=== PATIENT | male | born 1940 | race Caucasian/White ===

== ENCOUNTER 2017-07-04 06:16 | Inpatient (IN) | payer OTHER, MEDICARE ==
[2017-06-20 09:04] VITALS: BMI 29.0
--- NOTE | 2017-06-20 09:33 | PAT Medication Instructions ---
Service Date Jun 20, 2017. Current Home Medication List Allopurinol (Zyloprim), 100 MG PO QPM Olmesartan/Hctz (Benicar Hct 40/12.5), 1 TAB PO QAM Simvastatin (Zocor), 40 MG PO QPM Medication Instructions For Your Scheduled Surgery - Hold the following medications the morning of surgery: Olmesartan/Hctz (Benicar Hct 40/12.5), 1 TAB PO QAM - Take the following medications as scheduled the night before surgery: Allopurinol (Zyloprim), 100 MG PO QPM Simvastatin (Zocor), 40 MG PO QPM If you have any questions please call us at [phone] or [phone] or [phone]
--- NOTE | 2017-06-20 10:07 | DIAGNOSTIC IMAGING REPORT ---
CHEST 2 VIEWS ROUTINE HISTORY: 76 years-old Male PAT preoperative exam. No acute chest complaints. COMPARISON: None available TECHNIQUE: PA and lateral views of the chest FINDINGS: Cardiomediastinal and hilar silhouettes are within normal limits. Atherosclerosis of the aorta. No pneumothorax, pleural effusion, focal airspace consolidation or overt pulmonary edema. Bones of the chest appear grossly intact. IMPRESSION: No acute process. The above report was generated using voice recognition software. It may contain grammatical, syntax or spelling errors. Electronically signed by: Emil Cosby M.D. 06/20/2017 10:06 AM Dictated Date/Time: 06/20/2017 10:05 AM
[2017-06-20 10:34] LABS: BASO % 0.6 %; BASO ABS # 0.03 K/uL (0-0.2); EOS % 1.7 %; EOS ABS # 0.09 K/uL (0-0.5); HEMATOCRIT 41.7 % (42-52); HEMOGLOBIN 15.1 g/dL (14.0-18.0); IG# 0.01 K/uL (0.00-0.02); LYMPH % 23.7 %; LYMPH ABS # 1.22 K/uL (1.2-3.4); MEAN CORPUSCULAR HGB CONC 36.2 g/dl (32-36); MEAN PLATELET VOLUME 10.6 fL (7.4-10.4); MONO % 10.7 %; MONO ABS # 0.55 K/uL (0.11-0.59); NEUT % 63.1 %; NEUT ABS # 3.25 K/uL (1.4-6.5); PLATELET COUNT 119 K/uL (130-400); RED CELL DISTRIBUTION WIDTH CV 13.4 % (11.5-14.5); WHITE BLOOD COUNT 5.15 K/uL (4.8-10.8)
[2017-06-20 11:24] LABS: CALCIUM 9.6 mg/dl (8.5-10.1); CREATININE 1.14 mg/dl (0.60-1.40); POTASSIUM 4.1 mmol/L (3.5-5.1)
[2017-07-04] VITALS (18 sets, daily range): BP systolic 82–187; BP diastolic 51–93; PULSE 59–90; TEMP 36.3–37; O2SAT 95–97; Ht 175.3 cm; Wt 91.1 kg
[~2017-07-04] VITALS: Ht 175.3 cm; Wt 91.1 kg
[~2017-07-04 06:16] MED LIST: ACETAMINOPHEN 500 MG TAB PO SCH; ALLO100T PO; CEFAZOLIN 2000MG IV PUSH 15 ML IV SCH; CLINDAMYCIN 600 MG/54 ML D5W 54 ML IV SCH; CeleBREX 200 MG CAP PO SCH; GABAPENTIN 900 MG PO SCH; LACTATED RINGER'S 1000ML 1,000 ML IV SCH; NSS 1000ML IV SCH; OLME40TA30 PO; SIMV40TA2 PO
[2017-07-04] MEDS ORDERED: MIDAZOLAM HCL 1 MG/ML 2ML VIAL ONE (06:45)
[2017-07-04] MEDS ORDERED: FENTANYL CITRATE INJ 50 MCG/1 ML 2 ML VIAL ONE ×2 (06:45→08:02)
[2017-07-04] MEDS ORDERED: SODIUM CHLORIDE 0.9% PF 50 ML VIAL ONE (07:17)
[2017-07-04] MEDS ORDERED: BACITRACIN 50000 UNIT VIAL ONE (07:17)
--- NOTE | 2017-07-04 07:28 | History & Physical Bridge Note ---
H&P Re-Evaluation Bridge Note: I have examined the patient, reviewed the History & Physical and in the interval since the performance of the History & Physical I have noted the following changes of clinical significance: No changes noted
--- NOTE | 2017-07-04 07:29 | History and Physical ---
History & Physical Date Jul 04, 2017. Chief Complaint Neck and arm pain History of Present Illness The patient is a 76 year old male with complaints of neck and arm pain Additional History Hepatic Disease: No Endocrine Disorder: No Kidney Disease: No Hypertension: Yes Heart Disease: No Bleeding Tendencies: No Infectious Diseases: No Allergies Coded Allergies: No Known Allergies (Unverified , 07/04/17) Home Medications Scheduled Allopurinol (Zyloprim), 100 MG PO QPM Olmesartan/Hctz (Benicar Hct 40/12.5), 1 TAB PO QAM Simvastatin (Zocor), 40 MG PO QPM Physical Examination Skin: warm/dry, no rash Eyes: normal inspection, EOMI, sclerae normal ENT: normal ENT inspection, pharynx normal Head: normocephalic, atraumatic Neck: supple, no adenopathy, trachea midline Respiratory/Chest: lungs clear, normal breath sounds, no respiratory distress Cardiovascular: regular rate, rhythm, no edema, no murmur Abdomen / GI: normal bowel sounds, non tender Back: normal inspection Extremities: normal inspection, normal range of motion Neurologic/Psych: no motor/sensory deficits, alert, normal reflexes, oriented x 3 Diagnosis Cervical spinal stenosis Plan of Treatment ACDF C4-5 C6 corpectomy
[2017-07-04] MEDS ORDERED: EpHEDrine SULFATE INJ 50 MG/ML AMP IV PRN (07:30)
[2017-07-04] MEDS ORDERED: HYDROmorphone INJ 2 MG/ML SYR/VIAL IV PRN (07:30)
[2017-07-04] MEDS ORDERED: PHENYLEPHRINE 100MCG/ML 5ML SYR IV PRN (07:30)
[2017-07-04] MEDS ORDERED: FLUMAZENIL 0.1 MG/1 ML 10 ML VIAL IV PRN (07:30)
[2017-07-04] MEDS ORDERED: LABETALOL HCL IV 5 MG/ML 20ML IV PRN (07:30)
[2017-07-04] MEDS ORDERED: NALOXONE HCL 0.4 MG/1 ML VIAL/CARP IV PRN ×2 (07:30→09:45)
[2017-07-04] MEDS ORDERED: ATROPINE SULFATE 0.1 MG/ML 5ML SYR IV PRN (07:30)
[2017-07-04] MEDS ORDERED: MEPERIDINE HCL 25 MG/ML CARP IV PRN (07:30)
[2017-07-04] MEDS ORDERED: ONDANSETRON INJ 2 MG/ML 2 ML VIAL IV PRN ×2 (07:30→09:45)
[2017-07-04] MEDS ORDERED: HYDROmorphone INJ 2 MG/ML SYR/VIAL ONE ×2 (08:02→09:33)
[2017-07-04] MEDS ORDERED: DEXAMETHASONE SOD INJ 4 MG/ML VIAL ONE (08:16)
[2017-07-04] MEDS ORDERED: ONDANSETRON INJ 2 MG/ML 2 ML VIAL ONE ×2 (08:16→09:38)
[2017-07-04] MEDS ORDERED: ROCURONIUM BROMIDE 10 MG/ML 5 ML VIAL IV ONE (09:26)
[2017-07-04] MEDS ORDERED: PROPOFOL IV EMULSION 10 MG/ML 20 ML VIAL IV ONE (09:26)
[2017-07-04] MEDS ORDERED: LIDOCAINE HCL 2% 2 ML VIAL (20MG/ML) ONE (09:26)
[2017-07-04] MEDS ORDERED: FLOSEAL HEMOSTATIC MATRIX 5ML TOP ONE (09:38)
[2017-07-04] MEDS ORDERED: PHENYLEPHRINE 100MCG/ML 5ML SYR ONE (09:38)
[2017-07-04] MEDS ORDERED: NEOSTIGMINE METHYLSULFATE 1 MG/ML 10ML VIAL ONE (09:38)
[2017-07-04] MEDS ORDERED: GLYCOPYRROLATE INJ 0.2 MG/ML VIAL ONE (09:38)
[2017-07-04] MEDS ORDERED: METOPROLOL TARTRATE 1 MG/ML VIAL ONE (09:38)
[2017-07-04] MEDS ORDERED: EpHEDrine SULFATE 50MG/5ML SYR ONE (09:38)
--- NOTE | 2017-07-04 09:41 | [facility] Operative Report ---
Operative Report Operative Date Jul 04, 2017. Pre-Operative Diagnosis Cervical Spinal Stenosis Post-Operative Diagnosis Same Procedure(s) Performed 1. Anterior cervical corpectomy C6. #2 anterior cervical discectomy C4-5. #3 anterior cervical arthrodesis C4-C5 C5-C7. #4 placed a peek cage 8 mm at C4-5 and 25 mm at C5 C7. #5 application of locking plate and screws from C4-C7. #6 placement with locally harvested morselized allograft combined with DBM and interbody cages. Surgeon Dr. Jamarcus Kemp Marine Operations Coordinator Surgeon(s) Lindy Meadows PA-C Estimated Blood Loss 150mL Findings Severe spinal stenosis Specimens None, Per Surgeon Anesthesia Type General Description of Procedure Patient was met with preoperatively case discussed all questions addressed. After informed consent obtained patient was taken to the operative suite underwent intubation and placed in a supine position on the Qasim table that [place] hogshead mat assembler. All bony prominences were well-padded eyes inspected to ensure no external pressure placed upon them. This point the anterior cervical spine was prepped and draped in the normal sterile fashion. With the assistance of fluoroscopy identified the C5-6 disc space. A transverse incision was placed along the right anterior aspect of the cervical spine. Sharp dissection with the assistance of bipolar electrocautery was performed on September exposing the anterior cervical spine from C4-C7. Self-retaining retractors placed. Then performed a complete discectomy at C5-6 up to the uncovertebral joints bilaterally followed by C6-7. [place] distracting pins were then placed in C5 and C7 to distract across the C6 vertebral body complete corpectomy was then performed including removal of all posterior annular fibers and longitudinal ligament. Endplates were then burred to subcortical bleeding bone and 25 mm peek cage filled with locally harvested morselized autograft and DBM was tamped in position. Then proceeded at C4-5. Again complete discectomy performed up to the uncovertebral S bilaterally. [place] distractor pendulous to assist us in her visualization. I removed all posterior annular fibers longitudinal and to perform bilateral foraminotomies. The endplates were then burred to subcortical bleeding bone and an 8 mm peek cage filled with locally harvested morselized autograft and DBM tapped in position. All distracting apparatus was removed on anterior aspect burred to a smooth cortical surface and I felt complete and screws applied with the assistance of fluoroscopy. Incision was then copiously irrigated explored to ensure there is no damage to surrounding structures or remaining bleeding. 10 round ROSE drain inserted. Incision was then closed with 2 Vicryl to fascia 4-0 Monocryl for fashion closure Steri-Strips sterile dressings placed. Patient weakened taken to PACU in stable condition. Please note Lindy Jc was present throughout the entire procedure involved in patient positioning complex portions of the surgery and final skin closure. I attest to the content of the Intraoperative Record and any orders documented therein. Any exceptions are noted below.
[2017-07-04] MEDS ORDERED: HYDROmorphone INJ 0.5 MG/0.5 ML SYR IV PRN (09:45)
[2017-07-04] MEDS ORDERED: LORAZEPAM 0.5 MG TAB PO PRN (09:45)
[2017-07-04] MEDS ORDERED: DO NOT ADMINISTER FLU VACCINE PRN (09:45)
[2017-07-04] MEDS ORDERED: OXYCODONE HCL IR 5 MG TAB (IMMEDIATE RELEASE) PO PRN (09:45)
[2017-07-04] MEDS ORDERED: RACEPINEPHRINE 2.25% NEBU SOLN 0.5 ML VIAL INH PRN (09:45)
[2017-07-04] MEDS ORDERED: LORAZEPAM INJ 0.5 MG in SYRINGE 0.75 ML IV PRN (09:45)
[2017-07-04] MEDS ORDERED: DEXAMETHASONE INJ 8 MG in SYRINGE 0 ML IV PRN (09:45)
[2017-07-04] MEDS ORDERED: DiphenhydrAMINE HCL 50 MG/ML VIAL IV PRN (09:45)
[2017-07-04] MEDS ORDERED: MAGNESIUM HYDROXIDE SUSP 30 ML UDC PO PRN (09:45)
[2017-07-04] MEDS ORDERED: DO NOT ADMINISTER PNEUMOCOCCAL VACCINE PRN (09:45)
[2017-07-04] MEDS ORDERED: ACETAMINOPHEN IV 100 ML IV PRN (09:45)
--- NOTE | 2017-07-04 10:33 | DIAGNOSTIC IMAGING REPORT ---
CERVICAL 2 OR 3 VIEWS CLINICAL HISTORY: C4-C5 ACDF, C6 CORPECTOMY TECHNIQUE: Image intensifier COMPARISON STUDY: None FINDINGS: Findings consistent with anterior cervical fusion and corpectomy. IMPRESSION: Anterior fusion and corpectomy The above report was generated using voice recognition software. It may contain grammatical, syntax or spelling errors. Electronically signed by: Khalif Jacobo M.D. 07/04/2017 10:32 AM Dictated Date/Time: 07/04/2017 10:04 AM
[2017-07-04] MEDS: FENTANYL CITRATE INJ 50 MCG/1 ML 2 ML VIAL IV PRN ×2 (10:35→10:40)
--- NOTE | 2017-07-04 10:47 | Anesthesiology Progress Note ---
Anesthesia Post Op Note Date & Time Jul 04, 2017 at 10:46 Vital Signs Pain Intensity: 2 Vital Signs Past 12 Hours Date Time Temp Pulse Resp B/P (MAP) Pulse Ox O2 Delivery O2 Flow Rate FiO2 07/04/17 10:35 59 16 144/74 97 Nasal Cannula 4 07/04/17 10:25 60 16 138/84 97 Nasal Cannula 4 07/04/17 10:15 64 16 162/80 98 Nasal Cannula 4 07/04/17 10:05 63 16 156/75 99 Oxymask 5 07/04/17 09:55 66 16 158/80 98 Oxymask 10 07/04/17 09:48 36.2 69 16 168/74 98 Oxymask 10 07/04/17 06:35 36.4 82 24 187/93 97 Room Air Notes Mental Status: alert / awake / arousable, participated in evaluation Pt Amnestic to Procedure: Yes Nausea / Vomiting: adequately controlled Pain: adequately controlled Airway Patency, RR, SpO2: stable & adequate BP & HR: stable & adequate Hydration State: stable & adequate Anesthetic Complications: no major complications apparent The patient is doing well with no neck swelling. I discussed with the patient to let the nurse on the floor know if he has any trouble breathing or has any swelling of his neck.
[2017-07-04] MEDS ORDERED: HYDROmorphone INJ 1 MG/ML SYR IV PRN (11:45)
[2017-07-04] MEDS ORDERED: SCOPOLAMINE 1.5 MG TDSY TD SCH (12:00)
[2017-07-04] MEDS ORDERED: NURSING VERBAL MED ORDER ONE (13:00)
[2017-07-04] MEDS: SODIUM CHLORIDE 0.9% 1000ML 1,000 ML IV SCH ×2 (13:07→22:16)
[2017-07-04] MEDS ORDERED: RXC5 PO (14:54)
--- NOTE | 2017-07-04 14:56 | Discharge Instructions ---
Discharge Instructions Date of Service Jul 04, 2017. Admission Reason for Admission: Spinal Stenosis Discharge Discharge Diagnosis / Problem: cervical stenosis Discharge Goals Goal(s): Improve function Activity Recommendations Activity Limitations: per Instructions/Follow-up section . Instructions / Follow-Up Instructions / Follow-Up ACTIVITY RECOMMENDATIONS: SELF CARE INSTRUCTIONS AFTER CERVICAL FUSIONS 1. No smoking. Smoking drastically decreases the chance of a solid fusion. 2. No bending, lifting more than 5 pounds, or twisting (roll like a log when turning in bed). 3. You may shower 3 days after surgery. Thoroughly dry wound. Do not soak in the tub. 4. Cervical collar: Must be worn at all times including sleeping. You may remove the brace only to bath, eat and if you are sitting in a recliner. 5. Please walk as much as you can for exercise. Gradually increase the distance that you walk as your endurance increases. SPECIAL CARE INSTRUCTIONS: VERY IMPORTANT TO READ AND REVIEW A. Do not take any anti-inflammatory medications (i.e. Indocin, Advil, Aspirin, Naprosyn, Aleve, Motrin, etc.) as these may inhibit the chance of a solid fusion. Tylenol is okay to take. B. Your surgical incision has been closed with a cosmetic suture under the skin that will dissolve in about 6 weeks. In 14 days, you can use a pair of clean scissors and cut the suture that is left outside of the skin at the ends of your incision. C. Complications are uncommon, but please contact us if you have any signs or symptoms of: 1. wound infection (fever higher than 102.5 degrees F, redness, separation of wound, drainage, or increasing pain from the incision) 2. blood clots in legs (pain, swelling, redness and warmth in legs) 3. urinary tract infection (fever higher than 102.5 degrees, burning upon urination or increased frequency of urination) 4. nerve problems (inability to walk on your toes or heels, numbness, loss of bowel or bladder control) 5. any other symptoms that concern you. D. Please call the office at if you have any concerns or questions about your operation or recovery. MANAGING PAIN AFTER SPINAL SURGERY 1. Narcotic medication is intended for short-term use and will be provided for surgical pain. Surgical pain usually lasts for a period of 4-6 weeks. Narcotic medication includes Percocet, Vicodin, Darvocet, Tylenol #3 or Lortab. 2. Longer-term pain is more appropriately treated with non-narcotic medication such as Tylenol ES. 3. Muscle spasm is not appropriately treated with narcotics. Muscle relaxers such as Soma, Flexeril or Skelaxin can be used along with Tylenol ES. 4. Remember that we all live with some "aches and pains". This is not unusual or uncommon after an injury or as we get older. 5. We will provide appropriate medication within the normal guidelines of their prescribed use. We will also be very cautious and aware of potential abuse and extended duration of patients' medication needs. 6. Please allow 2-3 days to process refills. Prescriptions will not be mailed but must be picked up at the office. FOLLOW UP VISIT: Keep your scheduled follow-up appointment. Any questions, please call the office at . Current Hospital Diet Patient's current hospital diet: Clear Liquid Diet Discharge Diet Recommended Diet: Regular Diet Procedures Procedures Performed: C4-C5 Anterior Cervical Discectomy and Fusion; C6 Corpectomy, use of Demineralized Bone Matrix, C4-C7 Fusion. Pending Studies Studies pending at discharge: no Medical Emergencies . Who to Call and When: Medical Emergencies: If at any time you feel your situation is an emergency, please call 911 immediately. . Non-Emergent Contact Non-Emergency issues call your: Primary Care Provider . "Provider Documentation" section prepared by Jamarcus Kemp. .
[2017-07-04] MEDS: CHECK SCOPOLAMINE PATCH PLACEMENT SCH (16:00)
[2017-07-04] MEDS: CEFAZOLIN IV 2,000 MG in SYRINGE 0 ML IV SCH (16:57)
[2017-07-04] MEDS ORDERED: ALLOPURINOL 100 MG TAB PO SCH (21:00)
[2017-07-04] MEDS ORDERED: SIMVASTATIN 40 MG TAB PO SCH (21:00)
[2017-07-04] MEDS: DOCUSATE SODIUM 100 MG CAP PO SCH (21:23)
[2017-07-05] VITALS (20 sets, daily range): BP systolic 113–142; BP diastolic 62–71; PULSE 66–85; TEMP 36.5–37.1; O2SAT 94–98
[2017-07-05] MEDS: CHECK SCOPOLAMINE PATCH PLACEMENT SCH ×3 (00:04→15:48)
[2017-07-05] MEDS: CEFAZOLIN IV 2,000 MG in SYRINGE 0 ML IV SCH ×2 (00:05→07:58)
--- NOTE | 2017-07-05 07:56 | Anesthesiology Progress Note ---
Anesthesia Post Op Note Date & Time Jul 05, 2017 at 07:55 Vital Signs Pain Intensity: 0.0 Vital Signs Past 12 Hours Date Time Temp Pulse Resp B/P (MAP) Pulse Ox O2 Delivery O2 Flow Rate FiO2 07/05/17 07:52 Room Air 07/05/17 07:33 72 16 94 Room Air 07/05/17 06:11 36.5 67 16 129/69 97 Nasal Cannula 2.0 07/05/17 06:09 36.5 67 16 129/69 (89) 97 Nasal Cannula 2.0 07/05/17 06:08 36.5 67 16 129/69 (89) 97 Nasal Cannula 2.0 07/05/17 04:02 36.8 69 16 113/63 (80) 97 Nasal Cannula 2.0 69 07/05/17 04:01 36.8 69 16 113/63 (80) 97 Nasal Cannula 2.0 69 07/05/17 04:00 82 16 96 Nasal Cannula 2.0 07/05/17 03:59 36.8 69 16 113/63 97 Nasal Cannula 2.0 07/05/17 02:06 37.1 85 16 125/64 (84) 96 Nasal Cannula 2.0 07/05/17 02:03 36.8 66 14 138/65 96 Nasal Cannula 2.0 07/05/17 01:04 96 Nasal Cannula 2.0 07/05/17 00:03 85 16 96 Nasal Cannula 2.0 07/05/17 00:00 37.1 78 17 125/64 (84) 95 Room Air 2.0 Humidified Oxygen 07/04/17 23:21 36.8 86 18 153/80 95 Nasal Cannula 2.0 Humidified Oxygen 07/04/17 22:05 36.8 86 18 153/80 95 Nasal Cannula 2.0 Humidified Oxygen 07/04/17 20:47 36.8 79 18 82/51 (61) 97 Room Air 07/04/17 20:40 84 16 96 Nasal Cannula 3.0 07/04/17 19:57 37.0 87 18 131/66 95 Nasal Cannula 2.5 Humidified Oxygen Notes Mental Status: alert / awake / arousable, participated in evaluation Pt Amnestic to Procedure: Yes Nausea / Vomiting: adequately controlled Pain: adequately controlled Airway Patency, RR, SpO2: stable & adequate BP & HR: stable & adequate Hydration State: stable & adequate Anesthetic Complications: no major complications apparent
[2017-07-05] MEDS: SODIUM CHLORIDE 0.9% 1000ML 1,000 ML IV SCH (07:57)
[2017-07-05] MEDS: DOCUSATE SODIUM 100 MG CAP PO SCH (08:45)
[2017-07-05] MEDS ORDERED: OLMESARTAN MEDOXOMIL 40 MG TAB PO SCH (09:00)
[2017-07-05] MEDS ORDERED: HYDROCHLOROTHIAZIDE 25 MG TAB PO SCH (09:00)
--- NOTE | 2017-07-05 13:33 | Discharge Summary ---
Orthopedic Discharge Summary Admission Date/Reason Jul 04, 2017 at 07:30 Spinal Stenosis. Discharge Date/Disposition Jul 05, 2017 Home Diagnosis Principal Diagnosis: Cervical spinal stenosis Admission Physical Exam As per Admitting History & Physical. Hospital Course Patient underwent anterior cervical decompression and fusion tolerated this well was taken to the orthopedic floor postoperatively. Postop day #1 his arm symptoms are markedly improved. He was swallowing without difficulty. He had no hoarseness. ROSE drain decreased appropriately. Subsequently he was discharged home. Discharge orders and instructions found in the chart for further review. Discharge Instructions Please refer to the electronic Patient Visit Report (Discharge Instructions) for additional information.
[2017-07-06] MEDS ORDERED: BISACODYL 10 MG SUPP PR PRN (06:00)
[2017-07-06] MEDS ORDERED: BISACODYL 5 MG TABEC PO PRN (06:00)
[2017-07-07] MEDS ORDERED: POLYETHYLENE (MIRALAX) 17 GM PACK PO SCH (09:00)
== END 2017-07-05 16:26 | disposition home or self-care (01) | DRG 473 ==
LOC: C.ACU 06:16 → C.3E 07:30 → ENRESERV 10:42
PROVIDERS: ADMIT Orthopaedic Surgery Orthopaedic Surgery of the Spine; ATTEND Orthopaedic Surgery Orthopaedic Surgery of the Spine
PROC: 0RT30ZZ Resection of Cervical Vertebral Disc, Open Approach (ICD-10-PCS; principal; 2017-07-04 07:45)
PROC: 0RG20A0 Fusion of 2 or more Cervical Vertebral Joints with Interbody Fusion Device, Anterior Approach, Anterior Column, Open Approach (ICD-10-PCS; principal; 2017-07-04 07:45)
PROC: 0RB10ZZ Excision of Cervical Vertebral Joint, Open Approach (ICD-10-PCS; principal; 2017-07-04 07:45)
DX: M48.02 Spinal stenosis, cervical region (principal); M54.12 Radiculopathy, cervical region; I10 Essential (primary) hypertension; E78.5 Hyperlipidemia, unspecified; Z87.442 Personal history of urinary calculi; Z79.899 Other long term (current) drug therapy; Z98.890 Other specified postprocedural states

== ENCOUNTER 2021-08-19 09:07 | Observation (INO) ==
--- NOTE | 2021-07-29 13:45 | History & Physical Report ---
Date of Service July 29, 2021 date of surgery: 08/19/21 Procedure: Right Total Knee Arthroplasty Surgeon: Pablo Weaver Assessment & Plan (1) Arthritis of right knee: Plan: presents with increased pain in his right knee, has had prior cortisone injections, visco as well as fluid flow without relief. we discussed options, he would like to proceed with felicia block Right TKA at [facility] as part of OPJ program. patient will undergo Iovera treatment prior to his TKA The risks and benefits have been discussed including, but not limited to, risk of infection, nerve injury, stiffness, loss of motion, failure to improve, etc. Reasonable outcomes and options of treatment were discussed. An explanation of appropriate alternatives to the procedure that may be advantageous were discussed and their risks and benefits, as well as the risks and benefits of not proceeding with treatment. I offered to answer any additional inquiries concerning the treatment involved. All the patient's questions were answered. The patient is agreeable, understanding of the treatment plan and alternatives, and wishes to proceed with the treatment plan. History of Present Illness Chief Complaint: right knee pain Primary Care Provider: Bravo Malone DO Sam is a 81 year old male who complains of right knee pain, presents for pre-op evaluation prior to a right total knee replacement by Dr Weaver at [facility]. he complains of pain, decreased range of motion, instability and stiffness in his right knee. Currently the patient states that the symptoms are moderate- severe and is described as aching, sharp and throbbing. His symptoms are aggravated by ascending stairs, daily activities, first steps while awake walking. Prior NSAIDs include IBU and Aleve. He has been treated with previous cortisone, viscosupplementation and fluid flow injections in the past without much relief. in Nov 2018 he underwent Right knee arthroscopy with partial medial meniscectomy, Partial lateral meniscectomy, Chondroplasty patellofemoral joint Chondroplasty medial femoral condyle. Allergies Allergy/AdvReac Type Severity Reaction Status Date / Time No Known Allergies Allergy Verified 03/23/21 09:02 Home Medications Medication Instructions Recorded Confirmed Type allopurinol 100 mg tablet 200 mg PO QPM 03/23/21 03/23/21 History olmesartan 40 1 tab PO QAM 03/23/21 03/23/21 History mg-hydrochlorothiazide 12.5 mg tablet simvastatin 40 mg tablet 40 mg PO PM 03/23/21 03/23/21 History Past Med/Surg History Medical History Hearing deficit Hyperlipidemia Hypertension controlled, stable per pt Surgical History History of arthroscopy of right knee History of carpal tunnel surgery of left wrist History of colonoscopy History of fusion of cervical spine ACDF C4-C5, C4-C7 fusion 07/04/2017: Grade 1 view, Glidescope #4, ETT#8.0. No issues per anesthesia progress note. History of lithotripsy multiple, last 5 yrs ago, h/o renal stones, on allopurinol History of tooth extraction all teeth removed Family History Other No family history of adverse response to anesthesia Social History Smoking Status: Never smoker Second Hand Exposure: No; Hx Alcohol Use: No Hx Substance Use: No Preferred Language: Sinhala Communication Ability: Effective Water Ski Assembler Required: No Beliefs That Will Affect Care: None Current Living Situation: Spouse Feels Safe at Home: Yes Assistive Devices: Denture - Upper, Denture - Lower and Glasses Review of Systems Review of Systems: All systems reviewed & are unremarkable except as noted in HPI & below Constitutional: no fever, no chills and no sweats Respiratory: no cough and no dyspnea Cardiovascular: no chest pain, no dyspnea and no orthopnea Gastrointestinal: no abdominal pain, no nausea and no vomiting Musculoskeletal: as per Subjective / HPI Physical Exam Physical Exam: HT: 5ft 9in WT: 8.9kg Constitutional: WD/WN, vitals as above no acute distress Respiratory: normal respiratory effort, lungs clear to auscultation no respiratory distress, no labored breathing and does not use accessory muscles Cardiovascular: RRR, no murmur, no edema Gastrointestinal (Abdomen): normal bowel sounds, soft, nontender, no hepatosplenomegaly Musculoskeletal: Knee: + knee abnormal to inspection (RIGHT KNEE), + effusion (+1 effusion), + surgical incision (well healed portals), + limited ROM of knee (ROM 0/3/110), + knee ROM with crepitation, + joint line tenderness (medial joint line) and + Heena's sign positive; no deformity, no skin erythema, no ecchymosis, no valgus laxity, no varus laxity, anterior drawer test negative, Marlene's sign negative and pivot shift test negative Results & Data Results & Data ([facility]) Diagnostic Findings Right Knee X-ray: Right knee series showing advanced degenerative changes to the right knee, narrowing of the medial compartment and patello-femoral joint with patellar spurring noted, findings showing joint space narrowing of the medial compartment and patello-femoral joint, osteophyte formation and subchondral sclerosis noted. overall varus alignment. no acute bony pathology noted.
--- NOTE | 2021-08-07 10:59 | Anesthesiology Consultation ---
Date of Service August 07, 2021 Assessment & Plan (1) Encounter for pre-operative examination: - COVID screening: Per assessment on 08/07: No known COVID-19 positive contacts or current COVID-19 related symptoms. Travel screen negative. Patient vaccinate d. Surgeon arranging preop COVID testing. Awaiting results. - Hx glidescope intubation: ACDF C4-C5, C4-C7 fusion 07/04/2017 [facility]: Grade 1 view,Glidescope #4, ETT#8.0. No issues per anesthesia progress note. Chart Review Chart Review: Acceptable Risk for Surgery and Patient NOT seen in Pre Admission Testing History Surgery Operation Date: 08/19/21 11:20 Proposed Procedures p Right Total Knee Arthroplasty - Pablo Wevaer DO Height/Weight Height: 5 ft 9 in Weight: 83.461 kg Allergies Allergy/AdvReac Type Severity Reaction Status Date / Time No Known Allergies Allergy Verified 08/07/21 10:13 Medications Home Medications Medication Instructions Recorded Confirmed Last Taken allopurinol 100 mg tablet 200 mg PO QPM 03/23/21 08/07/21 Unknown olmesartan 40 1 tab PO QAM 03/23/21 08/07/21 Unknown mg-hydrochlorothiazide 12.5 mg tablet simvastatin 40 mg tablet 40 mg PO PM 03/23/21 08/07/21 Unknown multivitamin 1 tab PO QAM 08/07/21 08/07/21 Unknown Past Medical History Medical History (Updated 08/07/21 @ 10:29 by Kirstin Hinds RN) Arthritis Hearing deficit Hyperlipidemia Hypertension controlled, stable per pt Past Family History Family History Other No family history of adverse response to anesthesia Past Surgical History Surgical History History of arthroscopy of right knee History of carpal tunnel surgery of left wrist History of colonoscopy History of fusion of cervical spine ACDF C4-C5, C4-C7 fusion 07/04/2017: Grade 1 view, Glidescope #4, ETT#8.0. No issues per anesthesia progress note. History of lithotripsy multiple, last 5 yrs ago, h/o renal stones, on allopurinol History of tooth extraction all teeth removed Social History Smoking Status: Never smoker Do You Dip or Chew Tobacco: No Hx Alcohol Use: No Hx Substance Use: No substance use type: does not use Lab Results Anesthesia Preop Results Results Anesthesia Widget: WBC 4.98 K/uL (4.8-10.8) 07/10/21 Hgb 13.7 g/dL (14.0-18.0) L 07/10/21 Hct 39.7 % (42-52) L 07/10/21 Plt 125 K/uL (130-400) L 07/10/21 Na 141 mmol/L (136-145) 07/10/21 K 3.9 mmol/L (3.5-5.1) 07/10/21 Cl 108 mmol/L (98-107) H 07/10/21 CO2 24 mmol/L (21-32) 07/10/21 BUN 31 mg/dl (6-23) H 07/10/21 Creat 1.16 mg/dl (0.6-1.4) 07/10/21 Glucose Level 159 mg/dl (70-99(Fasting)) H 07/10/21 PT 10.2 Seconds (9.0-12.0) 07/10/21 PTT 26.3 Seconds (21.0-31.0) 07/10/21 INR 1.0 (0.9-1.1) 07/10/21 HA1c 5.7 % (4.5-5.6) H 07/10/21 Urine Color Yellow 07/10/21 Urine Appearance Clear (Clear) 07/10/21 Urine pH 5.0 (4.5-7.5) 07/10/21 Urine Specific [place] 1.019 (1.000-1.030) 07/10/21 Urine Protein Negative (Negative) 07/10/21 Urine Glucose (UA) Negative (Negative) 07/10/21 Urine Ketones Trace (Negative) H 07/10/21 Urine Blood Negative (Negative) 07/10/21 Urine Nitrite Negative (Negative) 07/10/21 Urine Bilirubin Negative (Negative) 07/10/21 Urine Urobilinogen Negative (Negative) 07/10/21 Urine Leukocyte Esterase Negative (Negative) 07/10/21 Testing Electrocardiogram Date: 03/26/21 Findings: + SB @ (54) Chest X-Ray Date: 03/26/21 Findings: + NAD
[~2021-08-19 09:07] MED LIST changes: -ALLO100T PO; +BUPIVACAINE 0.25% 30 ML VIAL ONE; +BUPIVACAINE 0.5 % 5 MG/1 ML PF 10ML VIAL ONE; -CEFAZOLIN 2000MG IV PUSH 15 ML IV SCH; -CLINDAMYCIN 600 MG/54 ML D5W 54 ML IV SCH; +DEXAMETHASONE SOD INJ 4 MG/ML VIAL ONE; +EPINEPHrine INJ 1 MG/ML AMP ONE; +FAMOTIDINE 20 MG TAB PO SCH; +GABAPENTIN 300 MG CAP PO SCH; -GABAPENTIN 900 MG PO SCH; -LACTATED RINGER'S 1000ML 1,000 ML IV SCH; +LR 500ML BOLUS, THEN 15ML/HR IV SCH; +METOCLOPRAMIDE HCL 10 MG TABLET PO SCH; -NSS 1000ML IV SCH; -OLME40TA30 PO; +ROPIVACAINE 0.5% HCL/PF 150 MG, BUPIVACAINE 0.75% MPF 20 ML, EPINEPHrine 30MG/30ML (OR ... INSTIL SCH; -SIMV40TA2 PO; +TRANEXAMIC ACID 1,000 MG **IV Intra-op IV SCH; +TRANEXAMIC ACID 1,000 MG **IV Pre-op IV SCH; +ceFAZolin 2000MG 2,000 MG/15 ML SYR IV SCH; +dexAMETHasone 4 MG TAB PO SCH; +oxyCODONE HCL 10 MG TABCR (OxyCONTIN) PO SCH
--- NOTE | 2021-08-19 10:20 | History & Physical Bridge Note ---
Date of Service August 19, 2021 History & Physical Bridge Note I have examined the patient, reviewed the History & Physical and in the interval since the performance of the History & Physical I have noted the following changes of clinical significance: no changes noted
[2021-08-19] MEDS ORDERED: MIDAZOLAM HCL 1 MG/ML 2ML VIAL ONE ×2 (11:01→12:33)
[2021-08-19] MEDS ORDERED: PROPOFOL IV EMULSION 10 MG/ML 20 ML VIAL IV ONE ×2 (11:02→13:46)
[2021-08-19] MEDS ORDERED: fentaNYL citrate 100 MCG/2 ML VIAL ONE (12:33)
[2021-08-19] MEDS ORDERED: ORTHO JOINT ANESTHETIC ONE (12:40)
--- NOTE | 2021-08-19 14:06 | Operative Report ---
Post Operative Report Pre & Post Diagnosis Operation Date: 08/19/21 11:55 Pre-Op Diagnosis: Right Knee Osteoarthritis Post-Op Diagnosis: Right Knee Osteoarthritis I identified the patient and participated in the time-out.: Yes Procedure Operation Date: 08/19/21 11:55 Actual Procedures p Right Total Knee Arthroplasty(Right) utilizing [employer] persona patient matched total knee arthroplasty size femur 11 standard tibia G polytwelve medial constrained patella 31 oval Pablo Weaver DO Surgeon Pablo Weaver DO Technical Project Lead ROSCOE Camacho Estimated Blood Loss 5 Findings Consistent with Post-Op Diagnosis Patient presents with severe end-stage DJD 12 degree flexion contracture varus alignment subchondral sclerosis marginal osteophytes with eburnated subchondral [id number] subchondral sclerosis moderate to large effusion Specimens Bone and cartilage Drains Medium bore Hemovac Anesthesia Type MAC Spinal Regional Complications none Disposition Accompanied Patient To Recovery: No Disposition: Recovery Room Indications Patient presents with severe end-stage tricompartmental degenerative joint disease right knee no response to conservative management clinic physical therapy anti-inflammatories relative rest activity modification corticosteroid injections viscosupplementation above intraoperative findings were noted Description of Procedure After proper prepping and draping of the Right lower extremity anterior midline incision was made over the region of the extensor extensor mechanism after meticulous hemostasis was obtained and maintained in subcutaneous tissues a medial parapatellar incision was made The patella was subluxed lateralward the medial lateral gutter were cleaned from any hypertrophic synovitis and scar tissue of the distal femoral block was placed and the distal femoral osteotomy cut was made subsequently the chamfers anterior and posterior osteotomy cuts were made utilizing the 4-in-1 block the tibia was subsequently subluxed anteriorward medial and ateral meniscal remnants were excised in their entirety remnants of the anterior and posterior cruciate ligaments were excised in their entirety excellent exposure of the proximal tibia was obtained the tibial osteotomy guide was placed on the proximal tibial osteotomy cut was made once again the knee was irrigated with copious amounts of sterile saline solution the patella was subsequently everted lateralward thickened scar tissue around the patella was removed the patella was subsequently cut utilizing a freehand technique and was drilled prepared for final preparation and placement of patella socially flexion-extension gaps were checked and the equal and symmetric trials were placed to the appropriate femoral and tibial trials with poly-spacer being placed for equal flexion and extension gaps and full range of motion including extension to 0 and flexion to 140 the trial components after having been taken to recovery range of motion was subsequently removed meticulous hemostasis was obtained and maintained subsequently a knee block injection of joint cocktail including ropivacaine 0.5% 150 mg. Bupivacaine 0.5% epinephrine 1-200,030 mL's toradol 30 mg dexamethasone 4 mg ketamine 10 mg clonidine 100 micrograms normal saline solution 30 mg was infiltrated into the soft tissues of the posterior knee medial lateral gutters and periosteal synovium special attention was paid to protect neurovascular structures at all times subsequently trial components having been removed the knee was irrigated with sterile saline solution. debris was removed the proximal tibia was subsequently prepared and was made ready for the placement of the tibial component tibial component was also cemented and tamped into position the femoral component was subsequently placed and cemented in the position the patellar component was subsequently cemented in position because hemostasis once again obtained and maintained wound having been thoroughly irrigated with debridement and debridement lavage was performed as well as a medial parapatellar incision closed with #1 Vicryl in interrupted fashion subcutaneous was closed with #2 Vicryl skin was closed with skin clips. PA-C was necessary for prepping and drapping as well as wound closure of deep fascia Sub cutaneous tissue and skin and was necessary for the case. A sterile compressive dressing was placed patient was taken to recovery in stable condition of report dictated by Owen I attest to the content of the Intraoperative Record and any orders documented therein. Any exceptions are noted below.Due to the complex nature of the procedure, the entire surgery was performed with the operational assistance of ALLEN Camacho. The healthcare administrative assistant, under direct supervision, was involved in the actual performance of all aspects of the surgical procedure including hemostasis, tissue retraction and incision, instrument management, patient positioning, and wound closure. I attest to the content of the Intraoperative Record and any orders documented therein. Any exceptions are noted below.
--- NOTE | 2021-08-19 15:09 | XRay Report ---
XR knee RT 1 or 2V routine HISTORY: 81 years-old Male Surgical Post Op right knee total joint arthroplasty COMPARISON: None TECHNIQUE: 2 views of the right knee FINDINGS: Right knee total joint arthroplasty with patellar resurfacing. Surgical drainage catheter is noted wi th expected postoperative soft tissue swelling and deep tissue air. No acute fracture or unexpected o paque foreign body. IMPRESSION: Right knee total joint arthroplasty and patella resurfacing with expected postoperative c hanges. ACT 112: Negative or not required by law. The above report was generated using voice recognition software. It may contain grammatical, syntax o r spelling errors. Electronically signed by: Luigi Cosby M.D. 08/19/2021 3:08 PM
--- NOTE | 2021-08-19 15:17 | Anesthesiology Progress Note ---
Date of Service August 19, 2021 Anesthesia Post Procedure Vital Signs Vital Signs: Temp Pulse Pulse Resp BP BP Pulse Ox 08/19/21 15:05 59 L 12 139/73 94 08/19/21 14:55 60 16 132/56 L 99 08/19/21 14:45 67 16 123/62 96 08/19/21 14:36 36.0 C L 68 16 109/46 L 96 08/19/21 10:03 36.8 C 79 18 165/85 H 97 Transfer of Care Handoff Completed per policy Notes Mental Status: alert / awake / arousable Patient Amnestic to Procedure: Yes Nausea / Vomiting: adequately controlled Pain: adequately controlled Airway Patency, RR, SpO2: stable & adequate BP & HR: stable & adequate Hydration State: stable & adequate Neuraxial Anesthesia: was administered and sensory block is resolving Anesthetic Complications: no major complications apparent and Pt Satisfied with anesthetic care
[2021-08-19] MEDS ORDERED: NALOXONE HCL 0.4 MG/1 ML VIAL/CARP IV PRN (16:16)
[2021-08-19] MEDS ORDERED: METOCLOPRAMIDE HCL INJ 5 MG/ML 2 ML VIAL IV PRN (16:16)
[2021-08-19] MEDS ORDERED: MAGNESIUM HYDROXIDE SUSP 30 ML UDC PO PRN (16:16)
[2021-08-19] MEDS ORDERED: ONDANSETRON INJ 2 MG/ML 2 ML VIAL IV PRN (16:16)
[2021-08-19] MEDS ORDERED: HYDROmorphone INJ 1 MG/ML SYRINGE IV PRN (16:16)
[2021-08-19] MEDS ORDERED: bisacodyL 10 MG SUPP PR PRN (16:16)
[2021-08-19] MEDS ORDERED: diphenhydrAMINE Capsule 25 MG CAP PO PRN (16:16)
[2021-08-19] MEDS ORDERED: oxyCODONE HCL IR 5 MG TAB (IMMEDIATE RELEASE) PO PRN (16:16)
[2021-08-19] MEDS: SODIUM CHLORIDE 0.9% 1000ML 1,000 ML IV SCH (16:40)
[2021-08-19] MEDS: KETOROLAC TROMETHAMINE 15 MG/ML VIAL IV SCH ×2 (18:13→23:18)
[2021-08-19] MEDS: ceFAZolin 2000MG 2,000 MG/15 ML SYR IV SCH (19:59)
[2021-08-19] MEDS: DOCUSATE SODIUM 100 MG CAP PO SCH (19:59)
[2021-08-19] MEDS: ASPIRIN 81 MG ECTAB PO SCH (20:00)
[2021-08-19] MEDS: SENNA 8.6 MG TAB PO SCH (20:03)
[2021-08-19] MEDS: allopurinoL 100 MG TAB PO SCH (20:04)
[2021-08-19] MEDS: SIMVASTATIN 40 MG TAB PO SCH (20:04)
[2021-08-19] MEDS: ACETAMINOPHEN 500 MG TAB PO SCH (23:18)
[2021-08-20] MEDS: SODIUM CHLORIDE 0.9% 1000ML 1,000 ML IV SCH ×2 (02:33→12:09)
[2021-08-20 06:10] LABS: Hematocrit (blood only) 32.6 % (42-52); Hemoglobin 11.3 g/dL (14.0-18.0); Mean Corpuscular Hemoglobin 32.8 pg (25-34); Mean Corpuscular Hgb Conc 34.7 g/dL (32-36); Mean Corpuscular Volume 94.8 fL (80-100); Platelet Count 122 K/uL (130-400); RDW Coefficient of Variation 14.2 % (11.5-14.5); RDW Standard Deviation 48.8 fL (36.4-46.3); Red Blood Count 3.44 M/uL (4.7-6.1); White Blood Count 15.84 K/uL (4.8-10.8)
[2021-08-20] MEDS: KETOROLAC TROMETHAMINE 15 MG/ML VIAL IV SCH (06:15)
[2021-08-20] MEDS: ACETAMINOPHEN 500 MG TAB PO SCH ×3 (06:15→21:01)
[2021-08-20] MEDS: ceFAZolin 2000MG 2,000 MG/15 ML SYR IV SCH (06:15)
[2021-08-20 06:37] LABS: BUN Creatinine Ratio 25.1 (10-20); Calcium 8.3 mg/dl (8.5-10.1); Creatinine Clr Calc Pharmacy 29.6 ml/min; Est GFR (African American) 35.7 ml/min; Est GFR (Non-African American) 30.8 ml/min; Potassium 5.3 mmol/L (3.5-5.1)
[2021-08-20] MEDS ORDERED: OLMESARTAN MEDOXOMIL 40 MG TAB PO SCH (09:00)
[2021-08-20] MEDS: hydroCHLOROthiazide 25 MG TAB PO SCH (09:48)
[2021-08-20] MEDS: DOCUSATE SODIUM 100 MG CAP PO SCH ×2 (09:49→19:49)
[2021-08-20] MEDS: MULTIVITAMIN TAB PO SCH (09:49)
[2021-08-20] MEDS: ASPIRIN 81 MG ECTAB PO SCH ×2 (09:49→19:50)
[2021-08-20] MEDS ORDERED: SODIUM CHLORIDE 0.9% 1000ML 500 ML IV ONE (10:14)
--- NOTE | 2021-08-20 11:18 | Orthopedic Progress Note ---
Date of Service August 20, 2021 Assessment & Plan (1) Arthritis of right knee: Plan: Postop day 1 status post right total knee arthroplasty. PT/OT protocols. Weightbearing as tolerated. DVT prophylaxis-aspirin p.o. twice daily, RON Aguilera. Pain management as written. Leukocytosis -likely secondary to preoperative steroids and or surgical stress. Patient currently asymptomatic. Elevated BUN and creatinine/elevated potassium : likely secondary to NSAIDs. NSAIDs have been discontinued. I have discussed this with [place] physician group hospitalist service. Patient was given a 500 mL bolus this morning. We will start gentle hydration and plan to continue that overnight. Recheck BMP in the a.m. Also recommendation to hold his Benicar overnight. Start him on hydralazine every 6 hours to help manage blood pressure. Admission and Anticipated Discharge Date Admission Date: August 19, 2021 Supervising Physician Co-Signing Physician Notes Patient seen and examined. Agree with ROSCOE Torres's note as above. Clinically, the patient is doing very well. He reports minimal pain in his right knee, controlled with just Tylenol. He has been ambulating in the hallways. His main issue is his kidney function with a bump in his creatinine from 1.16 preoperatively to 1.99 postoperatively. This is likely related to a combination of dehydration and NSAID use. NSAIDs have been discontinued. He had a lot of nausea yesterday, and is unable to keep down any fluids. He vomited twice. Today however his p.o. intake has been much better. We will recheck his kidney function tomorrow, and hopefully discharge if it has improved. Subjective Postop day 1 Patient sitting up in chair at the bedside. No complaints this morning. Pain is controlled. Denies shortness of breath, chest pain, lightheaded. Physical Exam Physical Exam: Dressings are clean, dry, and intact. Calves are soft and nontender. Neurovascular intact. Toes are mobile. He has good dorsiflexion and plantarflexion of the right foot. Hemovac drainage was 50 mL from the previous shift. Results & Data ([facility]) Vital Signs (Past 12 Hours) Vital Signs Temp Pulse Resp BP Pulse Ox 08/20/21 09:46 86 150/67 H 08/20/21 07:26 36.6 C 82 16 116/57 L 95 08/20/21 04:01 36.7 C 61 16 106/55 L 95 Laboratory Results Laboratory Results WBC 15.84 K/uL (4.8-10.8) H 08/20/21 05:33 RBC 3.44 M/uL (4.7-6.1) L 08/20/21 05:33 Hgb 11.3 g/dL (14.0-18.0) L 08/20/21 05:33 Hct 32.6 % (42-52) L 08/20/21 05:33 MCV 94.8 fL (80-100) 08/20/21 05:33 MCH 32.8 pg (25-34) 08/20/21 05:33 MCHC 34.7 g/dL (32-36) 08/20/21 05:33 RDW Std Deviation 48.8 fL (36.4-46.3) H 08/20/21 05:33 RDW Coeff of Dmitriy 14.2 % (11.5-14.5) 08/20/21 05:33 Plt Count 122 K/uL (130-400) L 08/20/21 05:33 MPV 11.0 fL (7.4-10.4) H 08/20/21 05:33 Sodium 138 mmol/L (136-145) 08/20/21 05:33 Potassium 5.3 mmol/L (3.5-5.1) H 08/20/21 05:33 Chloride 109 mmol/L (98-107) H 08/20/21 05:33 Carbon Dioxide 22 mmol/L (21-32) 08/20/21 05:33 Anion Gap 7 (3-11) 08/20/21 05:33 BUN 50 mg/dl (6-23) H 08/20/21 05:33 Creatinine 1.99 mg/dl (0.6-1.4) H 08/20/21 05:33 Est Cr Clr Drug Dosing 29.6 ml/min 08/20/21 05:33 Est GFR ( Amer) 35.7 ml/min 08/20/21 05:33 Est GFR (Non-Af Amer) 30.8 ml/min 08/20/21 05:33 BUN/Creatinine Ratio 25.1 (10-20) H 08/20/21 05:33 Glucose 148 mg/dl (70-99(Fasting)) H 08/20/21 05:33 Calcium 8.3 mg/dl (8.5-10.1) L 08/20/21 05:33 SARS-CoV-2, RNA, NAAT NEGATIVE (NEGATIVE) 08/19/21 09:25 Blood Type O Positive 08/19/21 10:26 Antibody Screen NEGATIVE 08/19/21 10:26 Impressions Knee X-Ray 08/19/21 14:42 XR knee RT 1 or 2V routine HISTORY: 81 years-old Male Surgical Post Op right knee total joint arthroplasty COMPARISON: None TECHNIQUE: 2 views of the right knee FINDINGS: Right knee total joint arthroplasty with patellar resurfacing. Surgical drainage catheter is noted with expected postoperative soft tissue swelling and deep tissue air. No acute fracture or unexpected opaque foreign body. IMPRESSION: Right knee total joint arthroplasty and patella resurfacing with expected postoperative changes. ACT 112: Negative or not required by law. The above report was generated using voice recognition software. It may contain grammatical, syntax or spelling errors. Electronically signed by: Luigi Cosby M.D. 08/19/2021 3:08 PM
[2021-08-20] MEDS ORDERED: hydrALAZINE HCL 20 MG/ML VIAL IV PRN (12:00)
[2021-08-20] MEDS: allopurinoL 100 MG TAB PO SCH (19:47)
[2021-08-20] MEDS: SIMVASTATIN 40 MG TAB PO SCH (19:48)
[2021-08-20] MEDS: SENNA 8.6 MG TAB PO SCH (19:49)
[2021-08-20] MEDS ORDERED: CeleBREX 200 MG CAP PO SCH (21:00)
[2021-08-21] MEDS: SODIUM CHLORIDE 0.9% 1000ML 1,000 ML IV SCH (00:06)
[2021-08-21] MEDS: ACETAMINOPHEN 500 MG TAB PO SCH ×2 (05:45→14:57)
[2021-08-21 06:57] LABS: BUN Creatinine Ratio 37.2 (10-20); Calcium 7.9 mg/dl (8.5-10.1); Creatinine Clr Calc Pharmacy 34.3 ml/min; Est GFR (African American) 42.6 ml/min; Est GFR (Non-African American) 36.7 ml/min; Potassium 4.8 mmol/L (3.5-5.1)
--- NOTE | 2021-08-21 07:57 | Orthopedic Progress Note ---
Date of Service August 21, 2021 Assessment & Plan (1) Arthritis of right knee: Plan: Postop day 2 status post right total knee arthroplasty. PT/OT protocols. Weightbearing as tolerated. DVT prophylaxis-aspirin p.o. twice daily, Willy, RON mota. Pain management as written. Leukocytosis -likely secondary to preoperative steroids and or surgical stress. Patient continues to be asymptomatic. Elevated BUN and creatinine/elevated potassium : likely secondary to NSAIDs. NSAIDs have been discontinued. I have discussed this with [place] physician group hospitalist service. Patient was given a 500 mL bolus this morning. We will start gentle hydration and plan to continue that overnight. BMP as noted above. Reached out to [facility] hospitalist team this morning. We will plan on continued hydration this morning until noon. Recheck BMP. If labs are remaining stable or improving, we will plan on discharging the patient home. Plans will be to hold his Benicar over the weekend and restart on Tuesday. We will also plan on rechecking lab values through home health services on Tuesday. Admission and Anticipated Discharge Date Admission Date: August 19, 2021 Subjective Postop day 2 Patient sitting in his chair at the bedside. No complaints this morning. Feels well. States he has been urinating quite a bit during the night since he has been on IV fluids. Reviewing BMP this morning showing BUN a bit more elevated this morning compared to yesterday however his creatinine has come down to 1.7. Potassium has normalized to 4.8. Physical Exam Physical Exam: Malissa dressing is clean, dry, and intact. Calves are soft nontender. Neurovascular is intact. Toes are mobile. Results & Data ([facility]) Vital Signs (Past 12 Hours) Vital Signs Temp Pulse Resp BP Pulse Ox 08/21/21 07:34 36.6 C 68 16 131/62 96 08/20/21 21:42 36.4 C L 66 16 116/57 L 97 Laboratory Results 08/21/21 Range/Units 06:03 Sodium 135 L (136-145) mmol/L Potassium 4.8 (3.5-5.1) mmol/L Chloride 108 H (98-107) mmol/L Carbon Dioxide 21 (21-32) mmol/L Anion Gap 6 (3-11) BUN 64 H (6-23) mg/dl Creatinine 1.72 H (0.6-1.4) mg/dl Est Cr Clr Drug Dosing 34.3 ml/min Est GFR ( Amer) 42.6 ml/min Est GFR (Non-Af Amer) 36.7 ml/min BUN/Creatinine Ratio 37.2 H (10-20) Glucose 128 H (70-99(Fasting)) mg/dl Calcium 7.9 L (8.5-10.1) mg/dl
[2021-08-21] MEDS: hydroCHLOROthiazide 25 MG TAB PO SCH (08:03)
[2021-08-21] MEDS: ASPIRIN 81 MG ECTAB PO SCH (08:03)
[2021-08-21] MEDS: DOCUSATE SODIUM 100 MG CAP PO SCH (08:04)
[2021-08-21] MEDS: MULTIVITAMIN TAB PO SCH (08:04)
[2021-08-21 12:51] LABS: BUN Creatinine Ratio 40.3 (10-20); Calcium 8.5 mg/dl (8.5-10.1); Creatinine Clr Calc Pharmacy 39.5 ml/min; Est GFR (African American) 50.6 ml/min; Est GFR (Non-African American) 43.7 ml/min; Potassium 4.3 mmol/L (3.5-5.1)
--- NOTE | 2021-08-24 07:58 | Discharge Summary ---
Date of Service date of discharge: August 21, 2021 date of admission: 08/19/21 Admission HPI Per Admitting Provider Sam is a 81 year old male who complains of right knee pain, presents for pre- op evaluation prior to a right total knee replacement by Dr Weaver at [facility]. he complains of pain, decreased range of motion, instability and stiffness in his right knee. Currently the patient states that the symptoms are moderate-severe and is described as aching, sharp and throbbing. His symptoms are aggravated by ascending stairs, daily activities, first steps while awake walking. Prior NSAIDs include IBU and Aleve. He has been treated with previous cortisone, viscosupplementation and fluid flow injections in the past without much relief. in Nov 2018 he underwent Right knee arthroscopy with partial medial meniscectomy, Partial lateral meniscectomy, Chondroplasty patellofemoral joint Chondroplasty medial femoral condyle. Principal Diagnosis right knee arthritis Discharge Exam Musculoskeletal right knee: NVDI, calf SNT, negative rosie sign. DP palpable, able to wiggle toes/ankle movement without difficulty. ANMOL dressing clean dry and intact. expected post-operative bruising noted. Discharge Data Allergies Allergy/AdvReac Type Severity Reaction Status Date / Time No Known Allergies Allergy Verified 08/19/21 10:01 Procedures Performed Operation Date: 08/19/21 11:55 Actual Procedures p Right Total Knee Arthroplasty(Right) - Pablo Weaver DO Ordered Studies 08/19/21 05:00 US - OR guided needle placemen Routine Hospital Course (1) Arthritis of right knee: Postop day 2 status post right total knee arthroplasty. PT/OT protocols. Weightbearing as tolerated. DVT prophylaxis-aspirin p.o. twice daily, SCDs, RON hose. Pain management as written. Leukocytosis -likely secondary to preoperative steroids and or surgical stress. Patient continues to be asymptomatic. Elevated BUN and creatinine/elevated potassium : likely secondary to NSAIDs. NSAIDs have been discontinued. I have discussed this with [facility]. Patient was given a 500 mL bolus this morning. We will start gentle hydration and plan to continue that overnight. BMP as noted above. Reached out to [facility] hospitalist team this morning. We will plan on continued hydration this morning until noon. Recheck BMP. If labs are remaining stable or improving, we will plan on discharging the patient home. Plans will be to hold his Benicar over the weekend and restart on Tuesday. We will also plan on rechecking lab values through home health services on Tuesday. Total Time Total Time Spent Total Time Spent (In Minutes): 20 Discharge Plan Discharge Items Patient Disposition: Home - Home Health Services Reason For Visit: Right Knee Osteoarthritis Discharge Diagnosis: RIGHT TOTAL KNEE REPLACEMENT Activity: Per Instructions section Lifting: Wait until after follow-up appointment Weightbearing Comment: WBAT WITH WALKER Non-emergency contact: Surgeon Call non-emergency contact if: you have any medication questions, your temperature is above 101, your wound has increased redness, your wound has increased drainage and your wound pain has increased Follow-up/Referrals: Pablo Weaver DO [Surgeon] - 09/04/21 9:20 am (Follow up in 14 days from the day of surgery for your first check up) Bravo Malone DO [Primary Care Provider] - Diet: Regular Ambulatory Orders: Basic Metabolic Panel (Routine) Timeframe: 3 Days Location: Determined by Patient Ordered By: Alberto Louis Attending Provider Instructions: RESTART YOUR BENICAR ON Tuesday08/24/21. YOU CAN DO DAILY BLOOD PRESSURE CHECKS. ACTIVITY RECOMMENDATIONS: SELF CARE INSTRUCTIONS AFTER TOTAL KNEE REPLACEMENT A. You may need to continue a physical therapy program after discharge from the hospital. There are several options available to you. Your doctor will assist you in selecting the best one for you. 1. An out-patient facility 2 to 3 times a week for therapy or home therapy. 2. Continue working on all exercises taught to you in the hospital. Your goals should be to increase bending of your knee to 90 degrees and beyond and to fully straighten your knee. B. You may progress at your own pace from walking with a walker or crutches to a cane; then to no assistive devices. C. Make walking a part of your daily routine. Be up as much as comfortable with rest periods throughout the day. Rest with leg elevation is very important. Use the ice wrap frequently for the first 3-4 weeks. D. There are no restrictions on activities. You may ride in a car, shop, participate in manager transport and all social activities. E. Wear the long elastic stockings (RON hose) 20 hours a day for 2 weeks after surgery. They can be removed several times a day for laundering and for a bath. F. You may shower, no tub baths until cleared by your doctor. SPECIAL CARE INSTRUCTIONS: VERY IMPORTANT TO READ AND REVIEW A. There are a few signs you need to watch for after you are home. Call [facility] if you notice any of the followin. Increased severe knee pain. Some pain is expected especially when you exercise. 2. Increased swelling in your leg or knee; pain or swelling of the calf muscle in either lower leg. 3. Any fluid drainage from the incision. 4. Shortness of breath or chest pain. B. Please call [facility] at if you have any concerns or questions about your operation or recovery. The doctor or his nurse will return your call promptly. C. You must take antibiotics before dental work, bladder, bowel or other surgery. Your doctor will provide you with a permanent care to carry describing this precaution. IMPORTANT: * REMEMBER TO TAKE ASPIRIN, 81 MG, TWICE DAILY FOR 4 WEEKS UNLESS OTHERWISE DIRECTED. THIS IS YOUR BLOOD THINNER. * HIGH RISK PATIENTS MAY BE PRESCRIBED A STRONGER BLOOD THINNER. THIS WILL BE PROVIDED AT DISCHARGE. * CALL IF INCREASED PAIN, REDNESS, DRAINAGE OR FEVER GREATER THAT 101. * WEAR RON HOSE 20 HOURS PER DAY FOR 2 WEEKS. * ANMOL Dressing- This is a large suction dressing covering your incision. This will help pull any excess drainage from the wound and allow your incision to heal properly. You may shower with this if you can keep the unit outside of the shower. If any bleeding or leakage is noted please call your doctor's office. This will remain on your incision for 7 days and then should be removed. This can be done yourself or by the home nursing staff if applicable. The entire unit is disposable once removed. Once removed, keep incision clean and dry. If redness or drainage is noted, please call your surgeon. ONCE ANMOL IS REMOVED, FOLLOW THESE INSTRUCTIONS: DERMABOND Prineo- This is a mesh tape dressing that is covered with glue. It should remain in place until the incision is properly healed, usually 10-14 days. This dressing is designed to naturally slough off. You may trim the excess mesh tape as it peels off. Incision may be briefly wet in a shower. Dry immediately by blotting with a clean, dry towel. Do not bath or swim until instructed by your doctor. Do not scratch, rub, or pick at the dressing. Do not apply any topical ointments or lotions until dressing is completely removed and/or instructed by your doctor. There may be a small piece of suture material at one end of your incision. Do not pull or trim this. If it is bothersome or catching on clothing, you may cover it with a band-aid. IF INCISION IS LEAKING THROUGH DRESSING, CALL THE OFFICE . FOLLOW UP VISIT: If appointment is not already scheduled: Please call [facility] to make a follow-up appointment for 2 weeks after your surgery at . Stand-Alone Forms: My [facility] Medications and DC Order Prescriptions: New aspirin 81 mg Tablet,Delayed Release (Dr/Ec) 81 mg PO BID 30 Days Qty: 60 RF: 0 acetaminophen [Tylenol Extra Strength] 500 mg Tablet 1,000 mg PO Q8 14 Days Qty: 84 RF: 0 polyethylene glycol 3350 [Miralax] 17 gram powder in packet 17 g PO DAILY PRN (Reason: constipation) Qty: 5 RF: 0 cefadroxil 500 mg capsule 500 mg PO BID Qty: 28 RF: 1 oxycodone 5 mg Tablet 5 mg PO Q4H MDD 6 PRN (Reason: pain) Qty: 30 RF: 0 Continued allopurinol 100 mg Tablet 200 mg PO QPM RF: 0 simvastatin 40 mg Tablet 40 mg PO PM RF: 0 multivitamin Tablet 1 tab PO QAM RF: 0 Discontinued olmesartan-hydrochlorothiazide [Benicar HCT] 40-12.5 mg Tablet 1 tab PO QAM RF: 0 Discharge Orders: Discharge Order (Routine); Ordered 08/21/21 Ordered By: Alberto Torres Admission Data Admit Date/Time: 08/19/21 14:42 Attending Provider: Pablo Weaver Admit Provider: Pablo Weaver Primary Care Provider: Bravo Malone Other Interventions: Discharge Summary Assessment (RN) Last Done: 08/21/21 15:02
== END 2021-08-21 15:51 | disposition home health service (06) ==
LOC: 3N 09:07 → ASU 09:07